=== PATIENT | female | born 1980 | race Caucasian/White ===

== ENCOUNTER → 2016-09-30 | Outpatient (CLI) | payer OTHER ==
--- NOTE | 2016-09-30 10:34 | KCIC ---
Indication: Pelvic pain and pressure. Transabdominal and transvaginal pelvic sonography was performed. The uterus measures 10.6 x 5.0 x 6.8 cm. The endometrium is 5 mm in thickness. There are cervical nabothian cysts present. There appear to be uterine fibroids present as well. An anterior myometrial solid mass with vascularity is present measuring 2.2 x 1.2 x 1.9 cm. A hypoechoic solid-appearing mass posterior myometrium measures 2.0 x 1.8 x 1.8 cm. The right ovary measures 2.5 x 2.4 x 3.5 cm and the left ovary measures 3.7 x 1.6 x 2.3 cm. There is blood flow to both ovaries. No adnexal mass or free fluid is detected. IMPRESSION: Probable uterine fibroids. No other significant abnormality is detected. Electronically signed by: Greg Vieira MD (09/30/2016 10:31 AM)
== END | disposition home or self-care (01) ==
LOC: KCIC US 09:00
PROVIDERS: ATTEND Obstetrics & Gynecology
DX: R10.2 Pelvic and perineal pain (principal)
CPT/HCPCS: 76830; 76856

== ENCOUNTER → 2017-10-11 | Outpatient (CLI) | payer OTHER | END | disposition home or self-care (01) | LOC: KCIC 09:16 | DX: M79.645 Pain in left finger(s) (principal); M79.89 Other specified soft tissue disorders | CPT/HCPCS: 73140 ==

== ENCOUNTER → 2019-03-12 | Outpatient (CLI) | payer OTHER ==
--- NOTE | 2019-03-12 14:29 | KCIC ---
MR of the right knee HISTORY: Right knee pain. Injury on February 20. FINDINGS: No evidence of medial meniscal tear. No evidence of lateral meniscal tear. The anterior and posterior cruciate ligaments are intact. Medial collateral ligament demonstrates a partial tear of the proximal anterior ligament. This may also involve the adjacent femoral aspect of the medial patellofemoral ligament and medial retinaculum. Iliotibial band unremarkable. Fibular collateral ligament, biceps femoris tendon and popliteus tendon are intact. Patellar and quadriceps tendon are intact.. Trace joint effusion. No significant Villatoro's cyst. 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 Mild chondromalacia at the medial joint compartment. Lateral compartment articular cartilage is intact. No acute fracture. No aggressive bone destruction. No significant Villatoro's cyst. IMPRESSION: Partial tear of the proximal medial collateral ligament. This may also involve segment of the adjacent medial patellofemoral ligament and medial retinaculum. Electronically signed by: Eugenio Gonzalez MD (03/12/2019 2:26 PM) [id number]
== END | disposition home or self-care (01) ==
LOC: KCIC MRI 13:06
PROVIDERS: ATTEND Physical Medicine & Rehabilitation Sports Medicine
DX: S83.411A Sprain of medial collateral ligament of right knee, initial encounter (principal); M94.261 Chondromalacia, right knee; M25.461 Effusion, right knee; X58.XXXA Exposure to other specified factors, initial encounter; Y93.89 Activity, other specified; Y92.89 Other specified places as the place of occurrence of the external cause; Y99.8 Other external cause status
CPT/HCPCS: 73721